=== PATIENT | female | born 1965 | race African-American/Black ===

== ENCOUNTER → 2016-12-16 | Outpatient (CLI) | payer BC | END | disposition home or self-care (01) | LOC: RAD 12:10 | PROVIDERS: ATTEND Student in an Organized Health Care Education/Training Program | DX: D25.9 Leiomyoma of uterus, unspecified (principal) ==

== ENCOUNTER 2016-12-25 21:54 | Emergency (ER) | payer BC ==
[~2016-12-25] VITALS: Ht 175.3 cm; Wt 76.8 kg
[2016-12-25] MEDS ORDERED: ONDANSETRON 2MG/ML, 2ML IVPush ONE (23:30)
[2016-12-25] MEDS ORDERED: FAMOTIDINE 20 MG/2 ML IVP ONE (23:30)
[2016-12-25] MEDS ORDERED: SODIUM CHLORIDE 0.9% 1,000ML IVBOLUS ONE (23:30)
[2016-12-25] MEDS ORDERED: MORPHINE SULFATE 4 MG/ML, 1ML IVPush PRN (23:30)
[2016-12-25] MEDS ORDERED: MORPHINE SULFATE 4 MG/ML, 1ML ONE (23:34)
[2016-12-25] MEDS ORDERED: FAMOTIDINE 20 MG/2 ML ONE (23:34)
[2016-12-25] MEDS ORDERED: ONDANSETRON 2MG/ML, 2ML ONE (23:34)
[2016-12-25 23:45] LABS: ASPARTATE AMINO TRANSFERASE 15 U/L (15-37); BLOOD UREA NITROGEN 12 mg/dL (7-18)
[2016-12-26 00:59] LABS: HEMOGLOBIN 13.4 g/dL (11.7-16.4)
[2016-12-26] MEDS ORDERED: MAALOX/HYOSCYAMINE/LIDOCAINE 45 ML BOTTLE ONE (01:26)
[2016-12-26] MEDS ORDERED: MAALOX/HYOSCYAMINE/LIDOCAINE 45 ML BOTTLE PO ONE (01:30)
[2016-12-26 02:12] VITALS: BP 112/65
== END 2016-12-26 02:15 | disposition home or self-care (01) ==
LOC: ED 12-26 02:07
DX: K29.70 Gastritis, unspecified, without bleeding (principal); R10.13 Epigastric pain
CPT/HCPCS: 36415; 76700; 80053; 81003; 83690; 84703; 85025; 93005; 96361; 96374; 96375; 99285; J2405; J7030; S0028

== ENCOUNTER 2017-06-23 00:31 | Emergency (ER) | payer BC ==
[~2017-06-23] VITALS: Ht 167.6 cm; Wt 77.3 kg
[2017-06-23 02:44] LABS: BLOOD UREA NITROGEN 7 mg/dL (7-18)
[2017-06-23 03:01] LABS: HEMATOCRIT 41.3 % (34.6-47.8); HEMOGLOBIN 13.3 g/dL (11.7-16.4); WHITE BLOOD COUNT 6.1 x10^3/uL (3.4-10)
[2017-06-23 04:23] VITALS: BP 116/74
== END 2017-06-23 04:25 | disposition home or self-care (01) ==
LOC: ED 02:34
DX: M65.20 Calcific tendinitis, unspecified site (principal); G89.29 Other chronic pain
CPT/HCPCS: 36415; 80048; 82550; 85025; 99285

== ENCOUNTER → 2018-03-12 | Outpatient (CLI) | payer BC | LOC: CFH 11:35 | PROVIDERS: ATTEND Nurse Practitioner Family | DX: Z12.31 Encounter for screening mammogram for malignant neoplasm of breast (principal) | CPT/HCPCS: 77067 ==

== ENCOUNTER 2019-10-20 10:00 | Outpatient (CLI) | payer BC | END 2019-10-20 23:59 | disposition home or self-care (01) | LOC: CFH 10:00 | PROVIDERS: ATTEND Specialist | DX: N63.10 Unspecified lump in the right breast, unspecified quadrant (principal); N60.01 Solitary cyst of right breast | CPT/HCPCS: 76642; 77066; G0279 ==

== ENCOUNTER 2020-12-08 14:57 | Emergency (ER) | payer BC ==
[~2020-12-08] VITALS: Ht 170.2 cm; Wt 79.3 kg
--- NOTE | 2020-12-08 15:39 | NUR ---
55 yo f w/ c/o neck pain, upper back pain, and head ache, and r. index finger pain. patient reported a fall in which she hit her head on 12/06. patient denies loss of conciousness, dizziness, confusion, and blurry vision. patient up to bathroom with steady gait.
--- NOTE | 2020-12-08 15:47 | NUR ---
patient to ct
--- NOTE | 2020-12-08 16:14 | NUR ---
patient bradycardic with Hr 40's-50's , sbp 130'140's, Dr. Aviles notifed. EKG ordered and preformed. EKG strip given to Dr. Aviles. patient attached to all monitors. abdifatah.
[2020-12-08 16:56] VITALS: BP 113/70
== END 2020-12-08 17:04 | disposition home or self-care (01) ==
LOC: ED 15:47
DX: S16.1XXA Strain of muscle, fascia and tendon at neck level, initial encounter (principal); S60.031A Contusion of right middle finger without damage to nail, initial encounter; W01.0XXA Fall on same level from slipping, tripping and stumbling without subsequent striking against object, initial encounter; Y93.89 Activity, other specified; Y92.89 Other specified places as the place of occurrence of the external cause; Y99.8 Other external cause status
CPT/HCPCS: 72125; 93005; 99284